=== PATIENT | female | born 1990 | race African-American/Black ===

== ENCOUNTER 2018-03-27 19:33 | Emergency (ER) | payer BC ==
[~2018-03-27] VITALS: Ht 162.6 cm; Wt 68.0 kg
[~2018-03-27 19:33] MED LIST: APAP/CODEINE ELI5 M1 OR; NEXIUM20 MG PO; PRENATAL COMPL1 EACH PO; TAMIFLU75 MG PO; ZANTAC 150MG T150 MG PO
[2018-03-27 19:34] VITALS: BP 111/67
[2018-03-27] MEDS ORDERED: AMOXICILLIN 50500 MG PO (20:09)
== END 2018-03-27 20:23 | disposition home or self-care (01) ==
LOC: ER 19:33
DX: J02.9 Acute pharyngitis, unspecified (principal); J45.909 Unspecified asthma, uncomplicated; H92.02 Otalgia, left ear